=== PATIENT | female | born 1930 | race Hispanic/Latino ===

== ENCOUNTER 2016-09-24 18:34 | Emergency (ER) | payer OTHER ==
[2016-09-24 18:45] VITALS: BMI 27.4
[2016-09-24 19:48] VITALS: RESP 18; TEMP 98; O2SAT 98
[2016-09-24] MEDS ORDERED: TDAP Vaccine 0.5 mL Syr IM ONE (20:10)
--- NOTE | 2016-09-24 20:27 | ED PDOC ---
Arrival/HPI - General Chief Complaint: Trauma Time Seen by Provider: 09/24/16 19:22 Historian: Patient - History of Present Illness Narrative History of Present Illness (Text): 09/24/16 20:27 Patient is an 86 year old female whose past medical history includes diabetes mellitus, hypertension, peripheral neuropathy, who presents to the emergency department for evaluation of injury to right wrist/forearm. Patient accidentally tripped while going to bathroom. No loss of consciousness or head injury. Denies any complaints other than slight discomfort of the right wrist. Denies headache, chest pain, shortness of breath, or back pain. Patient is able to move all four extremities without difficulty. Patient with noted hematoma to affected area by family. 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) - HEENT Hx HEENT Disorder: Yes Hx Blind: No Hx Cataracts: Yes (RIGHT EYE) Hx Deafness: Yes (hard oF hearing RIGHT) Hx Difficulty Chewing: No Hx Epistaxis: No Hx Glaucoma: No Hx Macular Degeneration: No - Renal Hx Renal Disorder: No Hx Renal Failure: No - Endocrine/Metabolic Hx Diabetes Mellitus Type 2: Yes - Hematological/Oncological Hx Blood Disorders: No Hx AIDS: No Hx Anemia: No Hx Cancer: No Hx Chemotherapy: No Hx Cirrhosis: No Hx Hemophilia: No Hx Hepatitis A: No Hx Hepatitis B: No Hx Hepatitis C: No Hx Metastasis: No Hx Shingles: No Hx Sickle Cell Disease: No Hx Unexplained Bleeding: No - Integumentary Hx Dermatological Disorder: Yes (LARGE SKIN ABRASION FROM FALL BACK SIDE. FALL.) Hx Basal Cell Carcinoma: No Hx Eczema: No Hx Melanoma: No Hx Psoriasis: No Hx Squamous Cell Carcinoma: No - Musculoskeletal/Rheumatological Hx Arthritis: Yes - Gastrointestinal Hx Gastrointestinal Disorders: Yes Hx Colostomy: No Hx Crohn's Disease: No Hx Diverticulitis: No Hx Gastroesophageal Reflux: No Hx Gastrointestinal Ulcer: No Hx Ileostomy: No Hx Liver Failure: No Hx Pancreatitis: Yes HX Swallowing Problems: No - Genitourinary/Gynecological Hx Genitourinary Disorders: Yes Hx Hematuria: No Hx Incontinence: Yes Hx Prostate Problems: No Hx Sexually Transmitted Diseases: No Hx Urinary Tract Infection: Yes - Psychiatric Hx Psychophysiologic Disorder: Yes Hx Anxiety: Yes Hx Bipolar Disorder: No Hx Depression: Yes Hx Emotional Abuse: No Hx Hallucinations: No Hx Panic Disorder: No Hx Post Traumatic Stress Disorder: No Hx Psychosis: No Hx Physical Abuse: No Hx Schizophrenia: No Hx Sexual Abuse: No Hx Substance Use: No - Surgical History Hx Amputation: No Hx Appendectomy: Yes Hx Cardiac Catheterization: No Hx Cholecystectomy: Yes Hx Coronary Stent: No Hx Gastric Bypass Surgery: No Hx Hysterectomy: No Hx Joint Replacement: No Hx Kidney Transplant: No Hx Liver Transplant: No Hx Mastectomy: No Hx Musculoskeletal Surgery: No Hx Open Heart Surgery: No Hx Orthopedic Surgery: No Hx Splenectomy: No Hx Valve Replacement: No - Anesthesia Hx Anesthesia: Yes Hx Anesthesia Reactions: No Hx Malignant Hyperthermia: No - Suicidal Assessment Feels Threatened In Home Enviroment: No Family/Social History - Physician Review Nursing Documentation Reviewed: Yes Family/Social History: Unknown Family HX Smoking Status: Never Smoked Hx Alcohol Use: No Hx Substance Use: No Hx Substance Use Treatment: No Allergies/Home Meds Allergies/Adverse Reactions: Allergies No Known Allergies Allergy (Verified 09/24/16 18:45) Home Medications: Home Meds Medication Instructions Recorded Confirmed ALPRAZolam [Xanax] 0.25 mg PO BID 10/26/14 09/24/16 Clopidogrel [Plavix] 75 mg PO DAILY 10/26/14 09/24/16 Docusate [Colace] 100 mg PO DAILY 10/26/14 09/24/16 Escitalopram [Lexapro] 10 mg PO DAILY 10/26/14 09/24/16 Folic Acid 1 mg PO DAILY 10/26/14 09/24/16 Gabapentin [Neurontin] 300 mg PO BID 10/26/14 09/24/16 Glipizide [Glucotrol] 5 mg PO BID 10/26/14 09/24/16 Magnesium Oxide [Magox 400] 1 tab PO DAILY 10/26/14 09/24/16 Simvastatin 20 mg PO QPM 10/26/14 09/24/16 Sitagliptin Phosphate [Januvia] 100 mg PO DAILY 10/26/14 09/24/16 Isosorbide Mononitrate [Imdur] 60 mg PO DAILY 02/02/16 09/24/16 Lactulose [Generlac] 20 ml PO DAILY PRN 02/02/16 09/24/16 Torsemide 20 mg PO DAILY 02/02/16 09/24/16 fentaNYL 75 mcg/hr [Duragesic 75 mcg TD Q72 02/02/16 09/24/16 Patch 75 mcg/hr] Review of Systems - Physician Review All systems were reviewed & negative as marked: Yes - Review of Systems Respiratory: absent: SOB Cardiovascular: absent: Chest Pain Musculoskeletal: Other (Right wrist discomfort). absent: Back Pain Neurological: absent: Headache Physical Exam Vital Signs Reviewed: Yes Vital Signs Temp Pulse Resp BP Pulse Ox 09/24/16 21:00 68 18 138/79 98 09/24/16 19:48 98 F 69 18 142/81 98 Temperature: Afebrile Blood Pressure: Normal Pulse: Regular Respiratory Rate: Normal Appearance: Positive for: Well-Appearing, Non-Toxic, Comfortable Pain Distress: Mild Mental Status: Positive for: Alert and Oriented X 3 - Systems Exam Head: Present: Atraumatic, Normocephalic Pupils: Present: PERRL Extroacular Muscles: Present: EOMI Conjunctiva: Present: Normal Ears: Present: Normal, NORMAL TM Mouth: Present: Moist Mucous Membranes Neck: Present: Normal Range of Motion, Other (Supple) Respiratory/Chest: Present: Clear to Auscultation, Good Air Exchange. No: Respiratory Distress, Accessory Muscle Use Cardiovascular: Present: Regular Rate and Rhythm, Normal S1, S2. No: Murmurs Abdomen: Present: Normal Bowel Sounds. No: Tenderness, Distention, Peritoneal Signs Back: Present: Normal Inspection Upper Extremity: Present: Normal ROM, NORMAL PULSES, Other (Large superficial skin hematoma, swelling to dorsal surface of right distal forearm/wrist region. Full range of motion of the wrist. Small skin tear to dorsum of right forearm. Neurovascularly intact. ). No: Cyanosis, Edema Lower Extremity: Present: Normal Inspection, Normal ROM. No: Edema Neurological: Present: GCS=15, CN II-XII Intact, Speech Normal, Motor Func Grossly Intact, Normal Sensory Function, Normal Cerebellar Funct, Norm Deep Tendon Reflexes Skin: Present: Warm, Dry, Normal Color. No: Rashes Psychiatric: Present: Alert, Oriented x 3, Normal Insight, Normal Concentration Medical Decision Making ED Course and Treatment: Impression: Patient is an 86 year old female whose past medical history includes diabetes mellitus, hypertension, peripheral neuropathy, who presents to the emergency department for evaluation of injury to right wrist/forearm. Differential Diagnosis include but are not limited to: Fracture vs sprain Plan: -- XR right wrist, forearm -- Tdap -- Reassess and disposition Prior Visits: Notes and results from previous visits were reviewed. Patient last seen in ED on 02/02/16 for weakness and fall, and admitted for weakness. Progress Notes: 09/24/16 21:25 Reviewed radiology, XR Right Forearm shows no evidence of acute fracture. XR Right Wrist shows no evidence of acute fracture. - RAD Interpretation Narrative RAD Interpretations (Text): XR Right Forearm shows no evidence of acute fracture. XR Right Wrist shows no evidence of acute fracture. Radiology Orders: 09/24/16 20:10 WRIST, RIGHT 3 VIEWS [RAD] Stat 09/24/16 20:14 FOREARM RIGHT [RAD] Stat Care Technician: ED Physician - Medication Orders Current Medication Orders: Discontinued Medications Tetanus/Reduced Diphtheria/Acell Pertussis (Boostrix Vaccine Inj) 0.5 ml IM .ONCE ONE Stop: 09/24/16 20:11 Last Admin: 09/24/16 20:33 Dose: 0.5 ml - Scribe Statement The provider has reviewed the documentation as recorded by the Evangelina Cervantes Provider Scribe Attestation: All medical record entries made by the Evangelina were at my direction and personally dictated by me. I have reviewed the chart and agree that the record accurately reflects my personal performance of the history, physical exam, medical decision making, and the department course for this patient. I have also personally directed, reviewed, and agree with the discharge instructions and disposition. Disposition/Present on Arrival - Present on Arrival Any Indicators Present on Arrival: No History of DVT/PE: No History of Uncontrolled Diabetes: No Urinary Catheter: No History of Decub. Ulcer: No History Surgical Site Infection Following: None - Disposition Have Diagnosis and Disposition been Completed?: Yes Diagnosis: Forearm contusion, Hematoma of skin, Skin tear Disposition: HOME/ ROUTINE Disposition Time: 21:32 Patient Plan: Discharge Patient Problems: Current Active Problems Problem Status Onset Forearm contusion Acute Hematoma of skin Acute Skin tear Acute Condition: GOOD Discharge Instructions (ExitCare): Contusion in Adults (ED), Skin Tear (ED) Additional Instructions: Keep area clean and dry/apply bacitracin,clean dressing daily/follow up with your doctor this week Prescriptions: Bacitracin Ointment [Bacitracin] 30 gm TOP DAILY #30 tube
[2016-09-24 21:34] VITALS: BP 138/79; PULSE 68
--- NOTE | 2016-09-25 08:52 | RAD ---
PROCEDURE: Radiographs of the Right Forearm HISTORY: injury COMPARISON: None available. TECHNIQUE: Frontal and lateral views obtained. FINDINGS: BONES: No definite fracture. However please note that evaluation is limited due to severe osteopenia. JOINT SPACES: Extensive degenerative changes of the joint spaces. OTHER FINDINGS: None. IMPRESSION: No definite fracture however, please note that evaluation is limited due to severe osteopenia. Extensive degenerative changes involving the joint spaces.
--- NOTE | 2016-09-25 08:57 | RAD ---
PROCEDURE: Right Wrist Radiographs. HISTORY: fall /injury COMPARISON: None. FINDINGS: BONES: No definite fracture or dislocation. JOINTS: Degenerative changes. SOFT TISSUES: No significant soft tissue swelling. OTHER FINDINGS: None. IMPRESSION: No definite fracture or dislocation. Evaluation somewhat limited due to severe osteopenia.
== END 2016-09-24 23:45 | disposition home or self-care (01) ==
LOC: ED 18:34
DX: S50.11XA Contusion of right forearm, initial encounter (principal); W01.0XXA Fall on same level from slipping, tripping and stumbling without subsequent striking against object, initial encounter; Y92.009 Unspecified place in unspecified non-institutional (private) residence as the place of occurrence of the external cause; I10 Essential (primary) hypertension; E11.42 Type 2 diabetes mellitus with diabetic polyneuropathy; Z23 Encounter for immunization

== ENCOUNTER 2017-02-15 11:17 | Inpatient (IN) | payer MEDICARE, OTHER ==
[2017-02-15 11:20] VITALS: BMI 29.5
--- NOTE | 2017-02-15 12:02 | ED PDOC ---
Arrival/HPI - General Chief Complaint: High Blood Sugar Time Seen by Provider: 02/15/17 11:55 Historian: Patient, Family - History of Present Illness Narrative History of Present Illness (Text): 02/15/17 11:55 A 87 year old female, whose past medical history includes diabetes, hyperlipidemia and CHF on Aspirin and Plavix, brought into the emergency department by family complaining of high blood sugar. Daughter reports patients blood sugar was 262 this morning, she states it usually runs in the 140's. She also reports increased lethargy and difficulty breathing. Daughter denies any new medications and states patient is compliant with all her meds. On evaluation , patient complains of shortness of breath and pain to her left lower extremity. Patient denies any fever, chills, nausea, vomiting, abdominal pain, appetite changes, chest pain, cough or any other complaints. PMD: Dr. 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) - HEENT Hx HEENT Disorder: Yes Hx Blind: No Hx Cataracts: Yes (RIGHT EYE) Hx Deafness: Yes (hard oF hearing RIGHT) Hx Difficulty Chewing: No Hx Epistaxis: No Hx Glaucoma: No Hx Macular Degeneration: No - Renal Hx Renal Disorder: No Hx Renal Failure: No - Endocrine/Metabolic Hx Diabetes Mellitus Type 2: Yes - Hematological/Oncological Hx Blood Disorders: No - Integumentary Hx Dermatological Disorder: Yes - Musculoskeletal/Rheumatological Hx Arthritis: Yes - Gastrointestinal Hx Gastrointestinal Disorders: Yes Hx Pancreatitis: Yes - Genitourinary/Gynecological Hx Genitourinary Disorders: Yes Hx Incontinence: Yes Hx Urinary Tract Infection: Yes - Psychiatric Hx Psychophysiologic Disorder: Yes Hx Anxiety: Yes Hx Depression: Yes Hx Substance Use: No - Surgical History Hx Appendectomy: Yes Hx Cholecystectomy: Yes - Anesthesia Hx Anesthesia: Yes Hx Anesthesia Reactions: No Hx Malignant Hyperthermia: No - Suicidal Assessment Feels Threatened In Home Enviroment: No Family/Social History - Physician Review Nursing Documentation Reviewed: Yes Family/Social History: No Known Family HX Smoking Status: Never Smoked Hx Alcohol Use: No Hx Substance Use: No Hx Substance Use Treatment: No Allergies/Home Meds Allergies/Adverse Reactions: Allergies No Known Allergies Allergy (Verified 09/24/16 18:45) Home Medications: Home Meds Medication Instructions Recorded Confirmed ALPRAZolam [Xanax] 0.25 mg PO DAILY 10/26/14 02/15/17 Clopidogrel [Plavix] 75 mg PO DAILY 10/26/14 02/15/17 Docusate [Colace] 100 mg PO DAILY 10/26/14 02/15/17 Escitalopram [Lexapro] 10 mg PO DAILY 10/26/14 02/15/17 Folic Acid 1 mg PO DAILY 10/26/14 02/15/17 Gabapentin [Neurontin] 300 mg PO BID 10/26/14 02/15/17 Glipizide [Glucotrol] 5 mg PO BID 10/26/14 02/15/17 Magnesium Oxide [Magox 400] 400 mg PO DAILY 10/26/14 02/15/17 Simvastatin 20 mg PO QPM 10/26/14 02/15/17 Sitagliptin Phosphate [Januvia] 100 mg PO DAILY 10/26/14 02/15/17 Isosorbide Mononitrate [Imdur] 60 mg PO DAILY 02/02/16 02/15/17 Lactulose [Generlac] 20 ml PO DAILY PRN 02/02/16 02/15/17 Torsemide 10 mg PO DAILY 02/02/16 02/15/17 fentaNYL 75 mcg/hr [Duragesic 75 mcg TD Q72 02/02/16 02/15/17 Patch 75 mcg/hr] Review of Systems - Physician Review All systems were reviewed & negative as marked: Yes - Review of Systems Constitutional: Other (lethargy). absent: Fevers, Night Sweats Respiratory: SOB. absent: Cough Cardiovascular: absent: Chest Pain Gastrointestinal: absent: Abdominal Pain, Nausea, Vomiting, Appetite Changes Musculoskeletal: Other (Left lower extremity pain) Physical Exam Vital Signs Reviewed: Yes Vital Signs Temp Pulse Resp BP Pulse Ox 02/15/17 14:33 67 18 105/42 L 97 02/15/17 13:45 68 15 112/55 L 94 L 02/15/17 11:18 99 F 67 18 118/60 94 L Temperature: Afebrile Blood Pressure: Normal Pulse: Regular Respiratory Rate: Normal Appearance: Positive for: Well-Appearing, Non-Toxic, Comfortable Pain Distress: None Mental Status: Positive for: Alert and Oriented X 3 Finger Stick Blood Glucose: 225 - Systems Exam Head: Present: Atraumatic, Normocephalic Pupils: Present: PERRL Extroacular Muscles: Present: EOMI Conjunctiva: Present: Normal Mouth: Present: Moist Mucous Membranes Neck: Present: Normal Range of Motion Respiratory/Chest: No: Good Air Exchange (shallowed breathing), Respiratory Distress, Accessory Muscle Use Cardiovascular: Present: Murmurs (Left lower sternal border systolic murmur), Normal S1, S2, Irregular Rhythm Abdomen: Present: Normal Bowel Sounds. No: Tenderness, Distention, Peritoneal Signs Back: Present: Normal Inspection Upper Extremity: Present: Normal Inspection, NORMAL PULSES. No: Cyanosis, Edema Lower Extremity: Present: Edema (Trace edema bilaterally), NORMAL PULSES. No: CALF TENDERNESS Neurological: Present: GCS=15, CN II-XII Intact, Speech Normal Skin: Present: Warm, Dry, Normal Color. No: Rashes Psychiatric: Present: Alert, Oriented x 3, Normal Insight, Normal Concentration Medical Decision Making ED Course and Treatment: 02/15/17 11:55 Impression: A 87 year old female brought in for high blood sugar. Patient complains of shortness of breath and LLE pain. Differential Diagnosis included but are not limited to: CHF vs. PNA vs. Worsening renal function vs. PE vs. Non-STEMI vs. Worsening hyperglycemic control Plan: -- Duplex lower extrmity ultrasound -- Chest xray -- EKG -- Labs -- Blood and Urine culture -- Urinalysis -- Reassess and disposition Prior Visits: Notes and results from previous visits were reviewed. Patient had an echocardiogram done on 10/28/14. Progress Notes: 02/15/17 13:17 87-year-old female presenting with shortness of breath and lethargy. She is long history of congestive heart failure is noted bilateral airspace disease consistent with CHF on her chest x-ray she is mildly hypoxic on room air she also has diffuse T-wave inversions on her EKG I have no old ones to compare. Troponin is negative she does have a leukocytosis and low-grade fever some mild loops in her urine we'll treat her for a UTI which will cover any incidental pneumonia as well which could be underlying her CHF. We'll admit her for congestive heart failure of note her d-dimer was elevated as we cannot get a CT of the chest at this time I believe CHF is more likely than pulmonary embolism will defer to the admitting team as to whether to anticoagulate Report Date : 02/15/2017 13:26:05 Procedure: Chest xray Dictator : Gilbert Day MD IMPRESSION: Cardiomegaly with vascular congestion and patchy infiltrates most consistent with CHF vs pneumonia 02/15/17 13:34 chest x-ray may represent fluid overload. She had one low blood pressure reading of 94/47 fluids were initiated but then held as her second blood pressure improved to 112/55, we will hold fluids unless BP drops or Lactic acid is elevated. noted d-dimer is elevated at this point we will defer anticoagulation as this is more likely CHF and pneumonia. Dr. Dudley is aware and will follow-up on pulmonary embolus workup. Report Date : 02/15/2017 14:16:35 PROCEDURE: Left lower extremity venous US Dictator : Joel Terrazas MD IMPRESSION: No sonographic evidence for deep venous thrombosis in the visualized segments of the left lower extremity. - Lab Interpretations Lab Results: 02/15/17 12:02 02/15/17 12:02 Lab Results 02/15/17 12:02: Sodium 139, Potassium 4.5, Chloride 101, Carbon Dioxide 26, Anion Gap 17, BUN 41 H, Creatinine 1.9 H, Est GFR ( Amer) 30, Est GFR ( Non-Af Amer) 25, Random Glucose 200 H, Calcium 9.2, Magnesium 2.2, Total Bilirubin 0.7, AST 44 H, ALT 26, Alkaline Phosphatase 127 H, Lactate Dehydrogenase 561, Total Creatine Kinase 144, Troponin I 0.06 D, NT-Pro-B Natriuret Pep 2000 H, Total Protein 7.7, Albumin 4.0, Globulin 3.8, Albumin/ Globulin Ratio 1.1 02/15/17 12:02: Urine Color Yellow, Urine Appearance Clear, Urine pH 6.0, Ur Specific [place] 1.025, Urine Protein 30 H, Urine Glucose (UA) Negative, Urine Ketones Trace H, Urine Blood Trace-intact H, Urine Nitrate Negative, Urine Bilirubin Negative, Urine Urobilinogen 1.0 H, Ur Leukocyte Esterase Small H, Urine RBC 0 - 2, Urine WBC 5 - 10, Ur Epithelial Cells 0 - 2, Urine Bacteria Mod 02/15/17 12:02: PT 11.4, INR 1.06, APTT 25.8, D-Dimer, Quantitative 2.75 H 02/15/17 12:02: WBC 16.0 H D, RBC 3.78, Hgb 11.9 L, Hct 36.5, MCV 96.6, MCH 31.5 , MCHC 32.6, RDW 14.6 H, Plt Count 202, MPV 10.7, Gran % 81.5 H, Lymph % (Auto) 12.8 L, [place] % (Auto) 5.2, Eos % (Auto) 0.4 L, Baso % (Auto) 0.1, Gran # 13.02 H , Lymph # 2.0, [place] # 0.8 H, Eos # 0.1, Baso # 0.02 I have reviewed the lab results: Yes - RAD Interpretation Radiology Orders: 02/15/17 11:56 CHEST TWO VIEWS (PA/LAT) [RAD] Stat DUPLEX LOWER EXTRM VEIN LEFT [US] Stat - Medication Orders Current Medication Orders: Acetaminophen (Tylenol 325mg Tab) 650 mg PO Q4H PRN PRN Reason: Pain, Mild (1-3) Alprazolam (Xanax) 0.25 mg PO DAILY ALIX PRN Reason: Protocol Stop: 02/23/17 10:01 Clopidogrel Bisulfate (Plavix) 75 mg PO DAILY ALIX Escitalopram Oxalate (Lexapro) 10 mg PO DAILY ALIX Gabapentin (Neurontin) 300 mg PO BID ALIX PRN Reason: Protocol Last Admin: 02/15/17 17:52 Dose: 300 mg Behavioural Document 02/15/17 17:52 MM (Rec: 02/15/17 17:52 MM [id number]) Maintenance Maintenance Dose Yes Nonmedicinal Nonmedicinal Interventions Therapeutic Communication Ceftriaxone Sodium (Rocephin 1 Gram Ivpb) 1 gm in 100 mls @ 100 mls/hr IVPB DAILY ALIX PRN Reason: Protocol Magnesium Oxide (Mag-Ox) 400 mg PO DAILY ALIX Discontinued Medications Ceftriaxone Sodium (Rocephin 1 Gram Ivpb) 1 gm in 100 mls @ 200 mls/hr IVPB STAT STA PRN Reason: Protocol Stop: 02/15/17 13:50 Last Admin: 02/15/17 13:43 Dose: 200 mls/hr eMAR Start Stop Document 02/15/17 13:43 SRE (Rec: 02/15/17 13:43 SRE [id number]) Intravenous Solution Start Date 02/15/17 Start Time 13:43 End Date 02/15/17 End time 14:45 Total Infusion Time 62 Sodium Chloride (Sodium Chloride 0.9%) 1,000 mls @ 150 mls/hr IV .[id number] STA Stop: 02/15/17 20:08 Last Admin: 02/15/17 13:42 Dose: 150 mls/hr eMAR Start Stop Document 02/15/17 13:42 SRE (Rec: 02/15/17 13:43 SRE [id number]) Intravenous Solution Start Date 02/15/17 Start Time 13:42 End Date 02/15/17 End time 21:00 Total Infusion Time 438 Azithromycin (Zithromax 500mg In Ns) 500 mg in 250 mls @ 167 mls/hr IVPB STAT STA PRN Reason: Protocol Stop: 02/15/17 15:06 Last Admin: 02/15/17 14:30 Dose: 167 mls/hr eMAR Start Stop Document 02/15/17 14:30 SRE (Rec: 02/15/17 14:30 SRE [id number]) Intravenous Solution Start Date 02/15/17 Start Time 14:15 End Date 02/15/17 End time 15:45 Total Infusion Time 90 - Scribe Statement The provider has reviewed the documentation as recorded by the Evangelian Jacobson Provider Scribe Attestation: All medical record entries made by the Scribe were at my direction and personally dictated by me. I have reviewed the chart and agree that the record accurately reflects my personal performance of the history, physical exam, medical decision making, and the department course for this patient. I have also personally directed, reviewed, and agree with the discharge instructions and disposition. Disposition/Present on Arrival - Present on Arrival Any Indicators Present on Arrival: Yes History of DVT/PE: No History of Uncontrolled Diabetes: Yes Urinary Catheter: No History of Decub. Ulcer: No History Surgical Site Infection Following: None - Disposition Have Diagnosis and Disposition been Completed?: Yes Diagnosis: Pneumonia, CHF (congestive heart failure) Disposition: HOSPITALIZED Disposition Time: 13:30 Patient Plan: Admission, Telemetry Patient Problems: Current Active Problems Problem Status Onset CHF (congestive heart failure) Acute Pneumonia Acute Condition: IMPROVED
[2017-02-15 12:09] LABS: URINE BILIRUBIN NEGATIVE (NEGATIVE); URINE BLOOD TRACE-INTACT (NEGATIVE); URINE GLUCOSE (UA) NEGATIVE (NEGATIVE); URINE KETONE TRACE mg/dL (NEGATIVE); URINE LEUKOCYTE ESTERASE SMALL Leu/uL (NEGATIVE); URINE PROTEIN 30 mg/dL (<30 mg/dL)
[2017-02-15 12:10] LABS: BASO # 0.02 K/mm3 (0.0-2.0); BASO % 0.1 % (0.0-3.0); EOS # 0.1 (0.0-0.7); EOS % 0.4 % (1.5-5.0); GRAN # 13.02 (1.4-6.5); GRAN % 81.5 % (50.0-68.0); HEMATOCRIT 36.5 % (36.0-48.0); LYMPH % 12.8 % (22.0-35.0); MEAN CELL VOLUME 96.6 fl (80.0-105.0); MEAN CORPUSCULAR HEMOGLOBIN 31.5 pg (25.0-35.0); MEAN CORPUSCULAR HGB CONC 32.6 g/dl (31.0-37.0); MEAN PLATELET VOLUME 10.7 fl (7.0-11.0); MONO # 0.8 (0.1-0.6); MONO % 5.2 % (1.0-6.0); RED CELL DISTRIBUTION WIDTH 14.6 % (11.5-14.5)
[2017-02-15 12:11] LABS: URINE APPEARANCE CLEAR (CLEAR); URINE COLOR YELLOW (YELLOW)
[2017-02-15 12:19] LABS: ALB/GLOB RATIO 1.1 (1.1-1.8); BILIRUBIN,TOTAL 0.7 mg/dL (0.2-1.3); CALCIUM 9.2 mg/dL (8.4-10.5); MAGNESIUM 2.2 mg/dL (1.7-2.2); POTASSIUM 4.5 mmol/L (3.6-5.0); TOTAL PROTEIN 7.7 g/dL (5.8-8.3)
[2017-02-15 12:20] LABS: INR 1.06 (0.93-1.08); PARTIAL THROMBOPLASTIN TIME 25.8 Seconds (23.7-30.8)
[2017-02-15 12:21] LABS: D DIMER 2.75 mg/L FEU (0-0.50); URINE BACTERIA MOD (NEG); URINE EPITHELIAL CELLS 0 - 2 /hpf (0-5); URINE RBC 0 - 2 /hpf (0-2)
[2017-02-15 12:30] LABS: TROPONIN I 0.06 ng/mL
[2017-02-15] MEDS ORDERED: cefTRIAXone 1 gm 1 GM/100 ML BAG IVPB STA (13:21)
--- NOTE | 2017-02-15 13:27 | RAD ---
HISTORY: SOB COMPARISON: 02/02/2016 TECHNIQUE: Chest PA and lateral FINDINGS: LUNGS: There is vascular congestion with patchy infiltrates PLEURA: No significant pleural effusion identified. No pneumothorax apparent. CARDIOVASCULAR: Moderate cardiomegaly OSSEOUS STRUCTURES: No significant abnormalities. VISUALIZED UPPER ABDOMEN: Normal. OTHER FINDINGS: None. IMPRESSION: Cardiomegaly with vascular congestion and patchy infiltrates most consistent with CHF
[2017-02-15] MEDS ORDERED: Sodium Chloride 0.9% 1,000 ML IV STA (13:29)
[2017-02-15] MEDS ORDERED: Azithromycin 500MG/NS 250ml 500 MG/250 ML BAG IVPB STA (13:37)
[2017-02-15 13:45] LABS: VENOUS BLOOD GAS BASE EXCESS 2.8 mmol/L (0.0-2.0); VENOUS BLOOD PH 7.32 (7.32-7.43)
--- NOTE | 2017-02-15 14:18 | US ---
PROCEDURE: Left lower extremity venous US HISTORY: Leg pain and swelling. Evaluate for DVT. PHYSICIAN(S): Joel Devi MD. TECHNIQUE: Duplex sonography and color-flow Doppler with graded compression were used to evaluate the deep venous system of the left lower extremity. The exam is somewhat limited by edema. FINDINGS: The visualized deep venous system of the left lower extremity is sonographically normal and compressible. Normal wave forms and augmentation are seen. There is no sonographic evidence for deep venous thrombosis in the visualized segments of the left lower extremity. IMPRESSION: 1. No sonographic evidence for deep venous thrombosis in the visualized segments of the left lower extremity.
--- NOTE | 2017-02-15 23:15 | HP ---
HISTORY OF PRESENT ILLNESS: An 87-year-old female with a history of lower leg neuropathy for many years, mild dementia, and recurrent episodes or urosepsis. The patient had change in mental status at home with low-grade fever and some dysuria, came to the emergency room and was found to have an elevated white count of 16,000 with left shift. Elevated BUN and creatinine of 41 and 1.9. Blood sugar of 200. Pyuria and bacteruria. The patient was evaluated in the ER for change in mental status. Also has a mild positive D-dimer. The patient was hydrated with fluids and started on IV antibiotics and admitted to the hospital with possible urosepsis and change in mental status. PHYSICAL EXAMINATION: VITAL SIGNS: Temperature of 99 and blood pressure of 118/60. GENERAL: Shows a well-developed, well-nourished, white female. Mild obesity. HEART: Regular sinus rhythm. CHEST: Clear to auscultation and percussion. EXTREMITIES: Without cyanosis, clubbing, or edema. NEUROLOGICAL: Grossly intact. Suffer decreased sensation in the lower extremities. Babinski are downgoing. The patient is oriented to person and place without time. PLAN: Is to hydrate, continue IV antibiotics, septic workup, and reassess her BUN and creatinine and her elevated leukocytosis. Emmanuel Dudley MD
--- NOTE | 2017-02-16 00:57 | CARD ---
APPROVED REPORT EKG Measurement Heart [id number] <Conclusion> Sinus rhythm with 1st degree AV block with premature atrial complexes T wave abnormality, consider anterolateral ischemia Prolonged QT Abnormal ECG
--- NOTE | 2017-02-16 08:51 | PQF UROSEP ---
This form is a permanent part of the medical record Clarification of your documentation is requested to better reflect the severity of illness and intensity of treatment of your patient. Indicators present The patient had change in mental status at home with low- grade fever and some dysuria, came to the emergency room and was found to have an elevated white count of 16,000 with left shift. Elevated BUN and creatinine of 41 and 1.9. Blood sugar of 200. Pyuria and bacteruria. The patient was evaluated in the ER for change in mental status. Also has a mild positive D- dimer. The patient was hydrated with fluids and started on IV antibiotics and admitted to the hospital with possible urosepsis and change in mental status. 1. Please clarify the specific condition indicated by the term 'urosepsis'. Per [facility], urosepsis is considered an imprecise term. [x] Documentation of UROSEPSIS [x] Fever or hypothermia [x] WBC count > 12,000/mm3 or <4000/mm3 or 10% immature neutrophils [x] Hypotension [] Tachycardia [x] Altered mental status/confusion [] + Urine/Blood Cultures [] Other: [] Location in the medical record that reflects the above clinical findings: [x] H& P Treatment Provided: [x] IV Rocephin PHYSICIAN'S RESPONSE Based on your medical judgment of the clinical indicators outlined above, are you treating this patient for a known or suspected: [] Sepsis from a Urinary Source [x] Localized Urinary Tract Infection - pyuria or bacteria in the urine [] Other, please indicate [] [] If unable to determine, please check the box, sign and date. Present On Admission (POA) Indicator: [x] Present at the time of admission [] Not present at the time of admission [] Clinically Undetermined In responding to this query, please exercise your independent professional judgment. The fact that a question is asked does not imply that any particular answer is desired or expected. Thank you for your clarification on this documentation. If you have any questions please call:[ ] * Thank you, [ ] mainframe programmer KATY
[2017-02-16 09:33] LABS: BASO # 0.02 K/mm3 (0.0-2.0); BASO % 0.2 % (0.0-3.0); EOS # 0.1 (0.0-0.7); EOS % 1.2 % (1.5-5.0); GRAN # 10.01 (1.4-6.5); GRAN % 82.1 % (50.0-68.0); HEMATOCRIT 35.4 % (36.0-48.0); LYMPH # 1.4 (1.2-3.4); LYMPH % 11.7 % (22.0-35.0); MEAN CELL VOLUME 96.2 fl (80.0-105.0); MEAN CORPUSCULAR HEMOGLOBIN 31.5 pg (25.0-35.0); MEAN CORPUSCULAR HGB CONC 32.8 g/dl (31.0-37.0); MONO # 0.6 (0.1-0.6); MONO % 4.8 % (1.0-6.0); RED CELL DISTRIBUTION WIDTH 14.4 % (11.5-14.5); WHITE BLOOD COUNT 12.2 10^3/ul (4.5-11.0)
[2017-02-16] MEDS ORDERED: Magnesium Oxide 400 mg Tab UD PO SCH (10:00)
[2017-02-16] MEDS ORDERED: cefTRIAXone 1 gm 1 GM/100 ML BAG IVPB SCH (10:00)
[2017-02-16] MEDS: Insulin Reg-LOW-Coverage SC SCH ×3 (12:24→21:36)
--- NOTE | 2017-02-16 19:45 | PN ---
SUBJECTIVE: An 87-year-old white female admitted to the hospital with change in mental status and urinary tract infection. The patient is afebrile today. Vital signs are stable. She also has an elevated BUN and creatinine of 41 and 1.9. White count of 12,200. Elevated temperature of 97.8, blood pressure of 133/65. The patient is treated with IV Rocephin. The patient is responding well. She had no further dysuria or change in mental status, but we will attempt to start physical therapy and occupational therapy to get the patient out of bed, ambulate and continue her course of IV antibiotics. Emmanuel Dudley MD
[2017-02-17] MEDS: Insulin Reg-LOW-Coverage SC SCH ×4 (08:12→21:08)
[2017-02-17] MEDS: cefTRIAXone 1 gm 1 GM/100 ML BAG IVPB SCH (10:36)
[2017-02-17] MEDS: Magnesium Oxide 400 mg Tab UD PO SCH (10:37)
--- NOTE | 2017-02-17 13:06 | PN ---
SUBJECTIVE: An 87-year-old white female admitted to the hospital with change in mental status and urosepsis. The patient is doing well. OBJECTIVE: Vital signs are stable. She is afebrile today. She is more oriented and alert. LABORATORY DATA: She is still having elevated white count of 12,200. Elevated BUN and creatinine of 41 and 1.9. She is starting physical therapy and occupational therapy. She has completed given course of IV antibiotics, and she will be transferred to subacute rehab. Her microbiology is showing E. coli in her urine which is sensitive to all antibiotics. Her blood cultures are negative. Emmanuel Dudley MD
[2017-02-18 06:28] VITALS: O2SAT 95
[2017-02-18] MEDS: Insulin Reg-LOW-Coverage SC SCH ×2 (08:17→11:57)
[2017-02-18] MEDS: Magnesium Oxide 400 mg Tab UD PO SCH (09:08)
[2017-02-18] MEDS: cefTRIAXone 1 gm 1 GM/100 ML BAG IVPB SCH (09:08)
--- NOTE | 2017-02-18 09:48 | PN ---
SUBJECTIVE: An 87-year-old white female status post urosepsis, E. coli with change in mental status. The patient is doing better, markedly improved. PHYSICAL EXAMINATION: VITAL SIGNS: The patient is afebrile. Blood pressure 169/68. LABORATORY DATA: BUN and creatinine is elevated at 41 and 1.9. White count is down to 12.2. PLAN: The patient is being transferred to TCU for continued rehab. Vital signs are stable. The patient is followed in TCU; the patient will be switched from IV to p.o. antibiotics. Emmanuel Dudley MD
[2017-02-18 11:54] VITALS: BP 153/58; PULSE 72; RESP 18; TEMP 98.4
== END 2017-02-18 14:51 | DRG 690 ==
LOC: ED 11:17 → ERH 13:34 → 2RNO 15:41 → UNDODISIN 02-16 13:29
PROVIDERS: ADMIT Internal Medicine; ATTEND Internal Medicine
DX: N39.0 Urinary tract infection, site not specified (principal); F03.90 Unspecified dementia, unspecified severity, without behavioral disturbance, psychotic disturbance, mood disturbance, and anxiety; I11.0 Hypertensive heart disease with heart failure; I50.9 Heart failure, unspecified; E11.41 Type 2 diabetes mellitus with diabetic mononeuropathy; G57.90 Unspecified mononeuropathy of unspecified lower limb; B96.20 Unspecified Escherichia coli [E. coli] as the cause of diseases classified elsewhere; Z79.84 Long term (current) use of oral hypoglycemic drugs

== ENCOUNTER 2017-02-18 14:51 | Inpatient (IN) | payer OTHER ==
[2017-02-18 15:39] VITALS: BMI 20.6
[2017-02-18] MEDS ORDERED: Pneumococcal 23-Valent Vaccine IM ONE (16:56)
[2017-02-18] MEDS: Insulin Reg-LOW-Coverage SC SCH ×2 (17:25→22:00)
[2017-02-19] MEDS: Insulin Reg-LOW-Coverage SC SCH ×4 (07:11→22:00)
[2017-02-19] MEDS: Magnesium Oxide 400 mg Tab UD PO SCH (10:07)
[2017-02-19] MEDS: Amoxicillin-Clav 500-125 mg Tab PO SCH (21:20)
--- NOTE | 2017-02-19 23:55 | PN ---
DATE: 02/19/2017 SUBJECTIVE: The patient has no complaints of any chest pain. No shortness of breath. No headache or dizziness. Initial H&P has been reviewed. PHYSICAL EXAMINATION: VITAL SIGNS: Temperature is 98, pulse is 57, blood pressure 157/66, respirations 15 and O2 saturation 95%. GENERAL: The patient is lying in bed, flat, comfortable. HEENT: No oral lesion. Anicteric sclerae. Moist mucosa. NECK: No JVD, adenopathy, or thyromegaly. CARDIOVASCULAR: S1 and S2, regular. No murmurs, rubs, or gallops. LUNGS: Clear to auscultation bilaterally. No wheeze, rales, or rhonchi. ABDOMEN: Bowel sounds are positive, soft, nontender and nondistended. EXTREMITIES: No cyanosis, clubbing or edema. ASSESSMENT: 1. Urinary tract infection secondary to Escherichia coli. 2. Dyslipidemia. 3. Hypertension. 4. Anxiety. 5. Osteoarthritis. PLAN: The patient is currently comfortable. The patient has had UTI secondary to E. coli. The patient is on fentanyl patch for pain, he is on Lexapro for anxiety. The patient is going to be on Neurontin for neuropathy. The patient is at TCU for continued rehab, Dr. Dudley. I will switch the patient however to p.o. antibiotics for the E. coli infection. The patient is fairly sensitive, I will place the patient on Augmentin, it is sensitive. Johann Hernandez MD
[2017-02-20] MEDS: Insulin Reg-LOW-Coverage SC SCH ×4 (06:56→22:30)
[2017-02-20] MEDS: Magnesium Oxide 400 mg Tab UD PO SCH (11:00)
[2017-02-20] MEDS: Amoxicillin-Clav 500-125 mg Tab PO SCH ×2 (11:00→21:07)
[2017-02-20 16:48] VITALS: RESP 18
[2017-02-21] MEDS: Insulin Reg-LOW-Coverage SC SCH ×2 (06:48→12:37)
[2017-02-21] MEDS: Magnesium Oxide 400 mg Tab UD PO SCH (10:28)
[2017-02-21] MEDS: Amoxicillin-Clav 500-125 mg Tab PO SCH (10:28)
--- NOTE | 2017-02-21 10:33 | DS ---
An 87-year-old white female admitted from [facility] after episode of change in mental status, confusion, urosepsis. The patient was found to have E. coli sensitive to most antibiotics, was switched to p.o. antibiotics. The patient is doing well. Vital signs stable. Completed physical therapy and occupational therapy. The patient will be discharged home in good condition. She is to finish the course of p.o. antibiotics at home. FINAL DISCHARGE DIAGNOSES: Change in mental status, dementia, urinary tract infection, and neuropathy. Emmanuel Dudley MD
[2017-02-21 14:13] VITALS: BP 155/68; PULSE 68; TEMP 98.3; O2SAT 96
== END 2017-02-21 14:44 | disposition home or self-care (01) | DRG 690 ==
LOC: TRCU 14:51
PROVIDERS: ADMIT Internal Medicine; ATTEND Internal Medicine
PROC: F07Z9FZ Gait Training/Functional Ambulation Treatment using Assistive, Adaptive, Supportive or Protective Equipment (ICD-10-PCS; principal; 2017-02-19)
DX: N39.0 Urinary tract infection, site not specified (principal); B96.20 Unspecified Escherichia coli [E. coli] as the cause of diseases classified elsewhere; G62.9 Polyneuropathy, unspecified; F03.90 Unspecified dementia, unspecified severity, without behavioral disturbance, psychotic disturbance, mood disturbance, and anxiety; I10 Essential (primary) hypertension; F41.9 Anxiety disorder, unspecified; E78.5 Hyperlipidemia, unspecified; M19.90 Unspecified osteoarthritis, unspecified site

== ENCOUNTER 2017-06-12 07:24 | Inpatient (IN) | payer MEDICARE, OTHER ==
[2017-06-12 07:48] VITALS: BMI 28.5
--- NOTE | 2017-06-12 08:03 | ED PDOC ---
Arrival/HPI - General Chief Complaint: Weakness/Neurological Deficit Time Seen by Provider: 06/12/17 07:41 Historian: Patient, Family - History of Present Illness Narrative History of Present Illness (Text): you were treated in the ED today for hx of stroke with right sided weakness, heart failure, urinary tract infections with confusion in the past and now brought with elizabeth who states your feeling weaker than normal, dry from lack of drinking fluids adequetely but otherwise without any nausea/vomiting/headache /dizziness/difficulty breathing/chest pain/abdomen pain/numbness/tingling/loss of limb function/pain with urination. 06/12/17 08:00 Time/Duration: Other (2 days) Quality: Other (no pain) Context: Sitting Past Medical History - Provider Review Nursing Documentation Reviewed: Yes - Travel History Have you recently traveled outside [place] w/in the past 3 mons?: No - Past History Past History: Non-Contributing - Infectious Disease Hx of Infectious Diseases: None - Tetanus Immunization Tetanus Immunization: Unknown - Cardiac Hx Cardiac Disorders: Yes Hx Congestive Heart Failure: Yes Hx Hypertension: Yes - Pulmonary Hx Respiratory Disorders: No Hx Chronic Obstructive Pulmonary Disease (COPD): No - Neurological HX Cerebrovascular Accident: Yes (2006) - HEENT Hx HEENT Disorder: Yes Hx Blind: No Hx Cataracts: Yes (RIGHT EYE) Hx Deafness: Yes (hard oF hearing RIGHT) Hx Difficulty Chewing: No Hx Epistaxis: No Hx Glaucoma: No Hx Macular Degeneration: No - Renal Hx Renal Disorder: No Hx Renal Failure: No - Endocrine/Metabolic Hx Diabetes Mellitus Type 2: Yes - Hematological/Oncological Hx Blood Disorders: No - Integumentary Hx Dermatological Disorder: Yes - Musculoskeletal/Rheumatological Hx Falls: Yes (02/02/2016) - Gastrointestinal Hx Gastrointestinal Disorders: Yes - Genitourinary/Gynecological Hx Reproductive Disorders: No - Psychiatric Hx Psychophysiologic Disorder: Yes Hx Anxiety: Yes Hx Depression: Yes Hx Substance Use: No - Surgical History Hx Appendectomy: Yes Hx Cholecystectomy: Yes - Anesthesia Hx Anesthesia: Yes Hx Anesthesia Reactions: No Hx Malignant Hyperthermia: No - Suicidal Assessment Feels Threatened In Home Enviroment: No Family/Social History - Physician Review Nursing Documentation Reviewed: Yes Family/Social History: No Known Family HX Smoking Status: Never Smoked Hx Alcohol Use: No Hx Substance Use: No Hx Substance Use Treatment: No Allergies/Home Meds Allergies/Adverse Reactions: Allergies No Known Allergies Allergy (Verified 06/12/17 07:52) Home Medications: Home Meds Medication Instructions Recorded Confirmed ALPRAZolam [Xanax] 0.25 mg PO DAILY 10/26/14 06/12/17 Clopidogrel [Plavix] 75 mg PO DAILY 10/26/14 06/12/17 Docusate [Colace] 100 mg PO DAILY 10/26/14 06/12/17 Escitalopram [Lexapro] 10 mg PO DAILY 10/26/14 06/12/17 Folic Acid 1 mg PO DAILY 10/26/14 06/12/17 Gabapentin [Neurontin] 300 mg PO BID 10/26/14 06/12/17 Glipizide [Glucotrol] 5 mg PO BID 10/26/14 06/12/17 Magnesium Oxide [Magox 400] 400 mg PO DAILY 10/26/14 06/12/17 Simvastatin 20 mg PO QPM 10/26/14 06/12/17 Sitagliptin Phosphate [Januvia] 100 mg PO DAILY 10/26/14 06/12/17 Isosorbide Mononitrate [Imdur] 60 mg PO DAILY 02/02/16 06/12/17 Lactulose [Generlac] 20 ml PO DAILY PRN 02/02/16 06/12/17 Torsemide 10 mg PO DAILY 02/02/16 06/12/17 fentaNYL 75 mcg/hr [Duragesic 75 mcg TD Q72 02/02/16 06/12/17 Patch 75 mcg/hr] Losartan [Cozaar] 100 mg PO DAILY 06/12/17 06/12/17 Review of Systems - Review of Systems Constitutional: Fatigue Eyes: Normal ENT: Normal Respiratory: Other (congestion) Cardiovascular: Normal Gastrointestinal: Normal Genitourinary Female: Urine Output Changes Musculoskeletal: Normal Skin: Normal Neurological: Normal, Other Endocrine: Normal Hemo/Lymphatic: Normal Psychiatric: Normal Physical Exam Vital Signs Reviewed: Yes Vital Signs Temp Pulse Resp BP Pulse Ox 06/12/17 10:07 72 18 124/72 96 06/12/17 07:44 98.1 F 70 20 114/56 L 94 L 06/12/17 07:38 98.1 F 75 18 114/56 L 92 L Temperature: Afebrile Blood Pressure: Normal Pulse: Regular Respiratory Rate: Normal Appearance: Positive for: Well-Appearing, Non-Toxic, Comfortable Pain Distress: None Mental Status: Positive for: Alert and Oriented X 3, other - Systems Exam Head: Present: Atraumatic, Normocephalic Pupils: Present: PERRL Extroacular Muscles: Present: EOMI Conjunctiva: Present: Normal Ears: Present: Normal Mouth: Present: Moist Mucous Membranes Pharnyx: Present: Normal Nose (External): Present: Atraumatic Nose (Internal): Present: Normal Inspection Neck: Present: Normal Range of Motion Respiratory/Chest: Present: Clear to Auscultation, Good Air Exchange Cardiovascular: Present: Regular Rate and Rhythm Abdomen: No: Tenderness, Distention, Normal Bowel Sounds, Peritoneal Signs, Rebound, Guarding, McBurney's Point Tender, Rovsing's Sign Present, Hernias, Feeding Tubes, Ostomy Tubes, Mass/Organomegaly, Scars, Other Back: Present: Normal Inspection Upper Extremity: Present: Normal Inspection Lower Extremity: Present: Normal Inspection Neurological: Present: GCS=15, CN II-XII Intact, Speech Normal, Other (baseline level of strength as pt with right lower extremity weakness) Skin: Present: Warm, Normal Color Psychiatric: Present: Alert, Oriented x 3, Normal Insight, Normal Concentration Medical Decision Making ED Course and Treatment: you were treated in the ED today for hx of stroke with right sided weakness, heart failure, urinary tract infections with confusion in the past and now brought with elizabeth who states your feeling weaker than normal, dry from lack of drinking fluids adequetely but otherwise without any nausea/vomiting/headache /dizziness/difficulty breathing/chest pain/abdomen pain/numbness/tingling/loss of limb function/pain with urination. You were otherwise breathing easily, pink lips, smiling and taking with your daughter, baseline strength/sensation, alert/ oriented, clear lungs, no abdomen tenderness, no fever temp 98.1, stable heart rate 75, stable breathing rate 18, excellent oxygen level 94% room air, stable blood pressure 114/56, you have blood tests no infection count 15, stable blood level hemoglobin 12/platelets 191, stable chemistry sodium 136, potassium 4.2, bicarbonate 28, chloride 98, bun 36, creatinine 1.5 mildly elevated, glucose 197 , heart blood test____, mild increase heart failure test 1970 with age consideration, urine test____, radiology no acute intracranial abnormality. moderate chronic changes, old lacunar infarction in the left medial basal ganglia, ECG similar to prior, intravenous fluids in the ED with improvement, counselled to drink fluids and thus discharged home with daughter. Influenza: Negative. Lactate: 1.4. difficulty ambulating/weakness. 06/12/17 08:55 CT Head: Creator : Anitra Mejias MD COMPARISON: 02/02/2016. FINDINGS: HEMORRHAGE: No intracranial hemorrhage. BRAIN: There are moderate chronic microangiopathic changes. There is no mass, mass effect or abnormal extra-axial fluid collections. 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 CALVARIUM: The skull base and calvarium are normal. PARANASAL SINUSES: Predominantly clear. MASTOID AIR CELLS: Predominantly clear. OTHER FINDINGS: None. IMPRESSION: No acute intracranial abnormality. Moderate chronic microangiopathic changes and moderate age-related global parenchymal volume loss. 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 06/12/17 09:40 CXR: Creator: Anitra Mejias MD FINDINGS: LINES AND TUBES: None. LUNG AND PLEURA: The lungs are well inflated. There is mild pulmonary venous congestion. No focal consolidation. HEART AND MEDIASTINUM:There is persistent mild cardiomegaly. There is unfolding of the aorta. Atherosclerotic aortic arch calcifications are present. The hilar and mediastinal contours are within normal limits. SKELETAL STRUCTURES: The bony structures are within normal limits for the patient's age. VISUALIZED UPPER ABDOMEN: Normal. OTHER FINDINGS: None. IMPRESSION: No active pulmonary disease. 06/12/17 10:15 06/12/17 10:53 d/w Dr. Muller and will admit for weakness. pt co of right lower leg pain and he will put in duplex us for dvt eval and he will fu. ua neg and cxr without acute sign of pneumonia and thus despite wbc 15 will hold off on abx at this time and he will fu urine cx. admit to med surgery. - Lab Interpretations Lab Results: 06/12/17 08:08 06/12/17 08:08 Lab Results 06/12/17 10:22: Urine Color Yellow, Urine Appearance Cloudy, Urine pH 6.0, Ur Specific [place] 1.020, Urine Protein Trace H, Urine Glucose (UA) Negative, Urine Ketones Negative, Urine Blood Small H, Urine Nitrate Negative, Urine Bilirubin Negative, Urine Urobilinogen 0.2, Ur Leukocyte Esterase Moderate H, Urine RBC Pending, Urine WBC Pending 06/12/17 09:05: pO2 48, VBG pH 7.36, VBG pCO2 52.0, VBG HCO3 29.4 H, VBG Total CO2 31.0 H, VBG O2 Sat (Calc) 87.9 H, VBG Base Excess 2.8 H, VBG Potassium 4.4, Glucose 208 H, Lactate 1.4, FiO2 21.0, Sodium 135.0, Chloride 102.0, Venous Blood Potassium 4.4 06/12/17 08:08: pO2 47, VBG pH 7.33, VBG pCO2 58.0, VBG HCO3 30.6 H, VBG O2 Sat (Calc) 85.9 H, VBG Base Excess 3.2 H 06/12/17 08:08: Influenza Typ A,B (EIA) Negative for flu a/b 06/12/17 08:08: PT 12.3, INR 1.08, APTT 27.1 06/12/17 08:08: Sodium 136, Potassium 4.2, Chloride 98, Carbon Dioxide 28, Anion Gap 14, BUN 36 H, Creatinine 1.5 H, Est GFR ( Amer) 40, Est GFR ( Non-Af Amer) 33, Random Glucose 197 H, Calcium 9.6, Magnesium 2.2, Total Bilirubin 0.6, AST 33, ALT 26, Alkaline Phosphatase 142 H, Lactate Dehydrogenase 457, Total Creatine Kinase 56, Troponin I 0.06, NT-Pro-B Natriuret Pep 1470 H, Total Protein 7.6, Albumin 3.8, Globulin 3.8, Albumin/ Globulin Ratio 1.0 L 06/12/17 08:08: WBC 15.1 H D, RBC 4.00, Hgb 12.8, Hct 38.8, MCV 97.0, MCH 32.0, MCHC 33.0, RDW 13.5, Plt Count 191, MPV 10.4, Gran % 80.8 H, Lymph % (Auto) 13.2 L, Citrus % (Auto) 4.9, Eos % (Auto) 0.8 L, Baso % (Auto) 0.3, Gran # 12.17 H , Lymph # 2.0, Citrus # 0.7 H, Eos # 0.1, Baso # 0.04 I have reviewed the lab results: Yes - RAD Interpretation Radiology Orders: 06/12/17 07:54 CHEST TWO VIEWS (PA/LAT) [RAD] Stat 06/12/17 07:59 HEAD W/O CONTRAST [CT] Stat 06/12/17 10:44 LUNG PERF & VENT SCAN [NM] Routine 06/12/17 10:46 DUPLEX LOWER EXTRM ARTR BILAT [US] Routine [employer]ing [employer] Laborer: Radiologist - EKG Interpretation Interpreted by ED Physician: Yes (SR, flipped t waves v2, v3) Type: 12 lead EKG Comparison: Similar to previous EKG (02/15/17) - Medication Orders Current Medication Orders: Alprazolam (Xanax) 0.25 mg PO DAILY ALIX PRN Reason: Protocol Stop: 06/20/17 10:01 Aspirin (Ecotrin) 81 mg PO 0800 ALIX Atorvastatin Calcium (Lipitor) 10 mg PO HS ALIX Clopidogrel Bisulfate (Plavix) 75 mg PO DAILY ALIX Docusate Sodium (Colace) 100 mg PO DAILY ALIX Escitalopram Oxalate (Lexapro) 10 mg PO DAILY ALIX Fentanyl (Duragesic) 75 patch TD Q72 ALIX Folic Acid (Folic Acid) 1 mg PO DAILY ALIX Sodium Chloride (Sodium Chloride 0.9%) 1,000 mls @ 100 mls/hr IV .Q10H ALIX Last Admin: 06/12/17 09:43 Dose: 100 mls/hr eMAR Start Stop Document 06/12/17 09:43 MS (Rec: 06/12/17 09:44 MS [id number]) Intravenous Solution Start Date 06/12/17 Start Time 09:44 Ceftriaxone Sodium (Rocephin 1 Gram Ivpb) 1 gm in 100 mls @ 100 mls/hr IVPB DAILY ALIX PRN Reason: Protocol Last Admin: 06/12/17 10:59 Dose: 100 mls/hr eMAR Start Stop Document 06/12/17 10:59 EWO (Rec: 06/12/17 11:00 EWO [id number]) Intravenous Solution Start Date 06/12/17 Start Time 11:00 End Date 06/12/17 End time 12:00 Total Infusion Time 60 Isosorbide Mononitrate (Imdur) 60 mg PO DAILY ALIX Lactulose (Generlac) 13.333 gm SD DAILY PRN PRN Reason: Constipation Losartan Potassium (Cozaar) 100 mg PO DAILY ALIX Magnesium Oxide (Mag-Ox) 400 mg PO DAILY ALIX - Scribe Statement The provider has reviewed the documentation as recorded by the Loreneibsabiha Schuster Provider Scribe Attestation: All medical record entries made by the Scribe were at my direction and personally dictated by me. I have reviewed the chart and agree that the record accurately reflects my personal performance of the history, physical exam, medical decision making, and the department course for this patient. I have also personally directed, reviewed, and agree with the discharge instructions and disposition. Disposition/Present on Arrival - Present on Arrival Any Indicators Present on Arrival: No History of DVT/PE: No History of Uncontrolled Diabetes: Yes Urinary Catheter: No History of Decub. Ulcer: No History Surgical Site Infection Following: None - Disposition Have Diagnosis and Disposition been Completed?: Yes Diagnosis: Weakness Disposition: HOSPITALIZED Disposition Time: 11:00 Patient Plan: Admission Condition: STABLE Discharge Instructions (ExitCare): Weakness (ED) Forms: [employer] (Gabonese)
[2017-06-12 08:31] LABS: BASO # 0.04 K/mm3 (0.0-2.0); BASO % 0.3 % (0.0-3.0); EOS # 0.1 (0.0-0.7); EOS % 0.8 % (1.5-5.0); GRAN # 12.17 (1.4-6.5); GRAN % 80.8 % (50.0-68.0); HEMOGLOBIN 12.8 g/dL (12.0-16.0); LYMPH % 13.2 % (22.0-35.0); MEAN PLATELET VOLUME 10.4 fl (7.0-11.0); MONO # 0.7 (0.1-0.6); MONO % 4.9 % (1.0-6.0); RED CELL DISTRIBUTION WIDTH 13.5 % (11.5-14.5); WHITE BLOOD COUNT 15.1 10^3/ul (4.5-11.0)
[2017-06-12 08:33] LABS: VENOUS BLOOD GAS BASE EXCESS 3.2 mmol/L (0.0-2.0); VENOUS BLOOD GAS PO2 47 mm/Hg (30-55); VENOUS BLOOD PH 7.33 (7.32-7.43)
[2017-06-12 08:57] LABS: ALBUMIN 3.8 g/dL (3.0-4.8); CALCIUM 9.6 mg/dL (8.4-10.5); MAGNESIUM 2.2 mg/dL (1.7-2.2)
--- NOTE | 2017-06-12 08:57 | CT ---
PROCEDURE: CT HEAD WITHOUT CONTRAST. HISTORY: hx of cva, weakness COMPARISON: 02/02/2016. TECHNIQUE: Axial computed tomography images were obtained through the head/brain without intravenous contrast. Radiation dose: Total exam DLP = 833.34 mGy-cm. This CT exam was performed using one or more of the following dose reduction techniques: Automated exposure control, adjustment of the mA and/or kV according to patient size, and/or use of iterative reconstruction technique. FINDINGS: HEMORRHAGE: No intracranial hemorrhage. BRAIN: There are moderate chronic microangiopathic changes. There is no mass, mass effect or abnormal extra-axial fluid collections. 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 CALVARIUM: The skull base and calvarium are normal. PARANASAL SINUSES: Predominantly clear. MASTOID AIR CELLS: Predominantly clear. OTHER FINDINGS: None. IMPRESSION: No acute intracranial abnormality. Moderate chronic microangiopathic changes and moderate age-related global parenchymal volume loss. 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
[2017-06-12 09:09] LABS: TROPONIN I 0.06 ng/mL
[2017-06-12 09:13] LABS: VENOUS BLOOD GAS BASE EXCESS 2.8 mmol/L (0.0-2.0); VENOUS BLOOD GAS PO2 48 mm/Hg (30-55); VENOUS BLOOD PH 7.36 (7.32-7.43)
[2017-06-12 09:26] LABS: INR 1.08 (0.93-1.08); PARTIAL THROMBOPLASTIN TIME 27.1 Seconds (25.1-36.5); PROTHROMBIN TIME 12.3 SECONDS (9.4-12.5)
--- NOTE | 2017-06-12 09:41 | RAD ---
HISTORY: COMPARISON: No prior. TECHNIQUE: Chest PA and lateral FINDINGS: LINES AND TUBES: None. LUNG AND PLEURA: The lungs are well inflated. There is mild pulmonary venous congestion. No focal consolidation. HEART AND MEDIASTINUM: There is persistent mild cardiomegaly. There is unfolding of the aorta. Atherosclerotic aortic arch calcifications are present. The hilar and mediastinal contours are within normal limits. SKELETAL STRUCTURES: The bony structures are within normal limits for the patient's age. VISUALIZED UPPER ABDOMEN: Normal. OTHER FINDINGS: None. IMPRESSION: No active pulmonary disease.
[2017-06-12] MEDS: Sodium Chloride 0.9% 1,000 ML IV SCH ×2 (09:43→20:46)
[2017-06-12 10:41] LABS: URINE BILIRUBIN NEGATIVE (NEGATIVE); URINE BLOOD SMALL (NEGATIVE); URINE GLUCOSE (UA) NEGATIVE (NEGATIVE); URINE LEUKOCYTE ESTERASE MODERATE Leu/uL (NEGATIVE); URINE NITRATE NEGATIVE (NEGATIVE); URINE PROTEIN TRACE mg/dL (<30 mg/dL); URINE UROBILINOGEN 0.2 E.U./dL (<1 E.U./dL)
[2017-06-12 10:45] LABS: URINE APPEARANCE CLOUDY (CLEAR); URINE COLOR YELLOW (YELLOW)
[2017-06-12] MEDS: cefTRIAXone 1 gm 1 GM/100 ML BAG IVPB SCH (10:59)
[2017-06-12 11:17] LABS: URINE BACTERIA MOD (NEG)
[2017-06-12 16:52] LABS: BASO # 0.03 K/mm3 (0.0-2.0); BASO % 0.3 % (0.0-3.0); EOS # 0.2 (0.0-0.7); EOS % 1.7 % (1.5-5.0); GRAN # 8.36 (1.4-6.5); HEMOGLOBIN 11.3 g/dL (12.0-16.0); LYMPH # 2.5 (1.2-3.4); LYMPH % 21.5 % (22.0-35.0); MEAN CELL VOLUME 97.2 fl (80.0-105.0); MEAN CORPUSCULAR HEMOGLOBIN 31.1 pg (25.0-35.0); MEAN PLATELET VOLUME 10.6 fl (7.0-11.0); MONO # 0.7 (0.1-0.6); MONO % 5.5 % (1.0-6.0); RBC 3.63 10^6/uL (3.5-6.1); RED CELL DISTRIBUTION WIDTH 13.6 % (11.5-14.5); WHITE BLOOD COUNT 11.8 10^3/ul (4.5-11.0)
[2017-06-12] MEDS: Insulin Reg-LOW-Coverage SC SCH ×2 (17:28→21:06)
--- NOTE | 2017-06-12 19:26 | CARD ---
APPROVED REPORT EKG Measurement Heart [id number] <Conclusion> Sinus rhythm with marked sinus arrhythmia with 1st degree AV block T wave abnormality, consider anterior ischemia Prolonged QT Abnormal ECG
--- NOTE | 2017-06-12 19:59 | CP.PCM.PN ---
Subjective - Date & Time of Evaluation Date of Evaluation: 06/12/17 Time of Evaluation: 19:59 - Subjective Subjective: Patient was seen at bedside. She is complaining of right leg pain. Requesting tylenol . States that she had stroke 10 years ago.Since stroke long time ago, she has this pain on and off. It is mild pain.Takes tylenol at home for same pain. Has no other complaints. Medical record was reviewed. This 87 year old white woman was admitted Has PMH of dementia, lower extremity neuropathy, urosepsis, HLD, HTN, DM II. Objective - Vital Signs/Intake and Output Vital Signs (last 24 hours): Temp Pulse Resp BP Pulse Ox 98 F 63 18 132/70 96 06/12/17 16:00 06/12/17 16:00 06/12/17 16:00 06/12/17 16:00 06/12/17 16:00 - Medications Medications: Current Medications Alprazolam (Xanax) 0.25 mg PO DAILY [facility] PRN Reason: Protocol Stop: 06/20/17 10:01 Aspirin (Ecotrin) 81 mg PO 0800 [facility] Atorvastatin Calcium (Lipitor) 10 mg PO HS [facility] Clopidogrel Bisulfate (Plavix) 75 mg PO DAILY [facility] Docusate Sodium (Colace) 100 mg PO DAILY [facility] Escitalopram Oxalate (Lexapro) 10 mg PO DAILY [facility] Fentanyl (Duragesic) 1 patch TD Q72H [facility] Folic Acid (Folic Acid) 1 mg PO DAILY [facility] Sodium Chloride (Sodium Chloride 0.9%) 1,000 mls @ 100 mls/hr IV .Q10H [facility] Last Admin: 06/12/17 09:43 Dose: 100 mls/hr Ceftriaxone Sodium (Rocephin 1 Gram Ivpb) 1 gm in 100 mls @ 100 mls/hr IVPB DAILY [facility] PRN Reason: Protocol Last Admin: 06/12/17 10:59 Dose: 100 mls/hr Insulin Human Regular (Humulin R Low) 0 units SC ACHS [facility] PRN Reason: Protocol Last Admin: 06/12/17 17:28 Dose: 1 units Isosorbide Mononitrate (Imdur) 60 mg PO DAILY [facility] Lactulose (Enulose) 20 gm PO DAILY PRN PRN Reason: Constipation Losartan Potassium (Cozaar) 100 mg PO DAILY [facility] Magnesium Oxide (Mag-Ox) 400 mg PO DAILY [facility] - Labs Labs: 06/12/17 16:15 PT 12.3 SECONDS (9.4-12.5) 06/12/17 08:08 INR 1.08 (0.93-1.08) 06/12/17 08:08 APTT 27.1 Seconds (25.1-36.5) 06/12/17 08:08 Most Recent Lab Values WBC 11.8 10^3/ul (4.5-11.0) H D 06/12/17 16:15 RBC 3.63 10^6/uL (3.5-6.1) 06/12/17 16:15 Hgb 11.3 g/dL (12.0-16.0) L 06/12/17 16:15 Hct 35.3 % (36.0-48.0) L 06/12/17 16:15 MCV 97.2 fl (80.0-105.0) 06/12/17 16:15 MCH 31.1 pg (25.0-35.0) 06/12/17 16:15 MCHC 32.0 g/dl (31.0-37.0) 06/12/17 16:15 RDW 13.6 % (11.5-14.5) 06/12/17 16:15 Plt Count 182 10^3/uL (120.0-450.0) 06/12/17 16:15 MPV 10.6 fl (7.0-11.0) 06/12/17 16:15 Gran % 71.0 % (50.0-68.0) H 06/12/17 16:15 Lymph % (Auto) 21.5 % (22.0-35.0) L 06/12/17 16:15 Reeves % (Auto) 5.5 % (1.0-6.0) 06/12/17 16:15 Eos % (Auto) 1.7 % (1.5-5.0) 06/12/17 16:15 Baso % (Auto) 0.3 % (0.0-3.0) 06/12/17 16:15 Gran # 8.36 (1.4-6.5) H 06/12/17 16:15 Lymph # 2.5 (1.2-3.4) 06/12/17 16:15 Reeves # 0.7 (0.1-0.6) H 06/12/17 16:15 Eos # 0.2 (0.0-0.7) 06/12/17 16:15 Baso # 0.03 K/mm3 (0.0-2.0) 06/12/17 16:15 PT 12.3 SECONDS (9.4-12.5) 06/12/17 08:08 INR 1.08 (0.93-1.08) 06/12/17 08:08 APTT 27.1 Seconds (25.1-36.5) 06/12/17 08:08 pO2 48 mm/Hg (30-55) 06/12/17 09:05 VBG pH 7.36 (7.32-7.43) 06/12/17 09:05 VBG pCO2 52.0 (40-60) 06/12/17 09:05 VBG HCO3 29.4 mmol/l (21-28) H 06/12/17 09:05 VBG Total CO2 31.0 mmol.L (22-28) H 06/12/17 09:05 VBG O2 Sat (Calc) 87.9 % (40-65) H 06/12/17 09:05 VBG Base Excess 2.8 mmol/L (0.0-2.0) H 06/12/17 09:05 VBG Potassium 4.4 mmol/L (3.6-5.2) 06/12/17 09:05 Sodium 135.0 mmol/L (132-148) 06/12/17 09:05 Chloride 102.0 mmol/L (98-107) 06/12/17 09:05 Glucose 208 mg/dl (65-105) H 06/12/17 09:05 Lactate 1.4 mmol/L (0.7-2.1) 06/12/17 09:05 FiO2 21.0 % 06/12/17 09:05 Sodium 136 mmol/L (132-148) 06/12/17 08:08 Potassium 4.2 mmol/L (3.6-5.0) 06/12/17 08:08 Chloride 98 mmol/L (98-107) 06/12/17 08:08 Carbon Dioxide 28 mmol/L (21-33) 06/12/17 08:08 Anion Gap 14 (10-20) 06/12/17 08:08 BUN 36 mg/dL (7-21) H 06/12/17 08:08 Creatinine 1.5 mg/dl (0.7-1.2) H 06/12/17 08:08 Est GFR ( Amer) 40 06/12/17 08:08 Est GFR (Non-Af Amer) 33 06/12/17 08:08 POC Glucose (mg/dL) 187 mg/dL (65-110) H 06/12/17 16:22 Random Glucose 197 mg/dL (70-110) H 06/12/17 08:08 Calcium 9.6 mg/dL (8.4-10.5) 06/12/17 08:08 Magnesium 2.2 mg/dL (1.7-2.2) 06/12/17 08:08 Total Bilirubin 0.6 mg/dL (0.2-1.3) 06/12/17 08:08 AST 33 U/L (14-36) 06/12/17 08:08 ALT 26 U/L (7-56) 06/12/17 08:08 Alkaline Phosphatase 142 U/L (38-126) H 06/12/17 08:08 Lactate Dehydrogenase 457 U/L (333-699) 06/12/17 08:08 Total Creatine Kinase 56 U/L (35-230) 06/12/17 08:08 Troponin I 0.06 ng/mL 06/12/17 08:08 NT-Pro-B Natriuret Pep 1470 pg/mL (0-450) H 06/12/17 08:08 Total Protein 7.6 g/dL (5.8-8.3) 06/12/17 08:08 Albumin 3.8 g/dL (3.0-4.8) 06/12/17 08:08 Globulin 3.8 gm/dL 06/12/17 08:08 Albumin/Globulin Ratio 1.0 (1.1-1.8) L 06/12/17 08:08 Venous Blood Potassium 4.4 mmol/L (3.6-5.2) 06/12/17 09:05 Urine Color Yellow (YELLOW) 06/12/17 10:22 Urine Appearance Cloudy (CLEAR) 06/12/17 10:22 Urine pH 6.0 (4.7-8.0) 06/12/17 10:22 Ur Specific Ethel 1.020 (1.005-1.035) 06/12/17 10:22 Urine Protein Trace mg/dL (<30 mg/dL) H 06/12/17 10:22 Urine Glucose (UA) Negative mg/dL (NEGATIVE) 06/12/17 10:22 Urine Ketones Negative mg/dL (NEGATIVE) 06/12/17 10:22 Urine Blood Small (NEGATIVE) H 06/12/17 10:22 Urine Nitrate Negative (NEGATIVE) 06/12/17 10:22 Urine Bilirubin Negative (NEGATIVE) 06/12/17 10:22 Urine Urobilinogen 0.2 E.U./dL (<1 E.U./dL) 06/12/17 10:22 Ur Leukocyte Esterase Moderate Charles/uL (NEGATIVE) H 06/12/17 10:22 Urine RBC 1 - 3 /hpf (0-2) 06/12/17 10:22 Urine WBC 5 - 10 /hpf (0-6) 06/12/17 10:22 Ur Epithelial Cells 3 - 4 /hpf (0-5) 06/12/17 10:22 Urine Bacteria Mod (NEG) 06/12/17 10:22 Influenza Typ A,B (EIA) Negative for flu a/b (NEGATIVE) 06/12/17 08:08 - Constitutional Appears: Well, No Acute Distress - Head Exam Head Exam: ATRAUMATIC, NORMAL INSPECTION, NORMOCEPHALIC - Eye Exam Eye Exam: Normal appearance - ENT Exam ENT Exam: Normal External Ear Exam - Neck Exam Neck Exam: Normal Inspection - Respiratory Exam Respiratory Exam: NORMAL BREATHING PATTERN - Cardiovascular Exam Cardiovascular Exam: absent: JVD - GI/Abdominal Exam GI & Abdominal Exam: absent: Distended - Rectal Exam Rectal Exam: Deferred - Exam Additional comments: Deferred. - Extremities Exam Extremities Exam: Tenderness (Minimal right distal thigh on posterior aspect.) - Back Exam Back Exam: NORMAL INSPECTION - Neurological Exam Neurological Exam: Alert, Awake, Oriented x3 - Psychiatric Exam Psychiatric exam: Normal Affect, Normal Mood - Skin Skin Exam: Normal Color Assessment and Plan - Assessment and Plan (Free Text) Assessment: Right leg pain. Dementia. HLD. HTN. Non Insulin Dependent DM. Plan: Tylenol 650 mg PO x 1. Continue present management as per PMD.
--- NOTE | 2017-06-12 22:53 | HP ---
HISTORY OF PRESENT ILLNESS: An 87-year-old white female with history of CAD status post stent on Plavix, history of chronic back pain and leg pain on fentanyl patch. The patient has a history of non-insulin dependent diabetes mellitus, hypertension, history of recurrent urinary tract infection in the past. The patient was unable to walk last night, was unable to urinate yesterday. The patient this morning woke up with a wet bed. Still unable to use a legs. Complaining a pain in the right thigh and right lower extremity, different from before. The patient was unable to stand and unable to bear weight, came to the Emergency Room, was found to have slightly irregular heart with sinus irregularity, decreased breath sounds bilaterally, but normal chest x-ray, normal CT of the head, warm and tender right thigh without erythema or without swelling. The patient has elevated white count. Unable to walk. Plan is to admit workup for possible sepsis, workup for possible PE and DVT. PHYSICAL EXAMINATION: GENERAL: She is well-developed, elderly white female, awake and alert. VITAL SIGNS: Stable. Blood pressure was slightly elevated 160/80. The patient is desaturating with oxygen at 89%. There is tenderness and swelling of the right leg. CHEST: Shows decreased breath sounds bilaterally. HEART: Sinus rhythm with irregularity. The patient is alert, oriented. There is decreased strength in the right lower extremity, Babinski down going bilaterally. Emmanuel Dudley MD
[2017-06-13] MEDS: Sodium Chloride 0.9% 1,000 ML IV SCH (06:12)
[2017-06-13] MEDS: Insulin Reg-LOW-Coverage SC SCH ×4 (08:05→21:29)
[2017-06-13] MEDS ORDERED: Sodium Chloride 0.9% 1,000 ML IV SCH (08:45)
[2017-06-13 09:16] LABS: BASO # 0.03 K/mm3 (0.0-2.0); BASO % 0.4 % (0.0-3.0); EOS # 0.3 (0.0-0.7); EOS % 3.1 % (1.5-5.0); GRAN # 6.21 (1.4-6.5); GRAN % 73.5 % (50.0-68.0); LYMPH # 1.5 (1.2-3.4); LYMPH % 17.2 % (22.0-35.0); MEAN CELL VOLUME 98.4 fl (80.0-105.0); MEAN CORPUSCULAR HEMOGLOBIN 31.5 pg (25.0-35.0); MEAN PLATELET VOLUME 10.5 fl (7.0-11.0); MONO # 0.5 (0.1-0.6); MONO % 5.8 % (1.0-6.0); RBC 3.81 10^6/uL (3.5-6.1); RED CELL DISTRIBUTION WIDTH 13.6 % (11.5-14.5); WHITE BLOOD COUNT 8.4 10^3/ul (4.5-11.0)
[2017-06-13 09:25] LABS: ALB/GLOB RATIO 0.9 (1.1-1.8); ALBUMIN 3.5 g/dL (3.0-4.8); ALT/SGPT 29 U/L (7-56); AST/SGOT 28 U/L (14-36); BLOOD UREA NITROGEN 26 mg/dL (7-21); CALCIUM 9.5 mg/dL (8.4-10.5); GFR AFRICAN-AMERICAN > 60; GFR NON-AFRICAN AMERICAN 52; MAGNESIUM 2.3 mg/dL (1.7-2.2)
[2017-06-13 09:39] LABS: T4 8.1 ug/dL (5.5-11.0)
[2017-06-13] MEDS: Magnesium Oxide 400 mg Tab UD PO SCH (10:42)
[2017-06-13] MEDS: cefTRIAXone 1 gm 1 GM/100 ML BAG IVPB SCH (10:43)
--- NOTE | 2017-06-13 14:48 | US ---
PROCEDURE: Lower extremity BARBRA exam HISTORY: Peripheral vascular disease with pain and claudication. Diabetes PHYSICIAN(S): Joel Devi MD. FINDINGS: The resting BARBRA's are normal: right, 1.10and left, 1.22. The brachial systolic pressures are symmetric. The low thigh pressures and waveforms are relatively normal. The calf PVR waveforms augment normally. No significant gradients are noted across the thighs. The ankle and metatarsal waveforms are relatively normal and symmetric. No significant pressure gradients are noted across the lower legs. IMPRESSION: 1. Relatively normal BARBRA and PVR examination at rest.
--- NOTE | 2017-06-13 14:55 | NM ---
COMPARISON: June 12, 2017. Single-view chest TECHNIQUE: 30.8 mCi technetium 99-m DTPA aerosol. 3.4 mCI technetium 99-m MAA administered intravenously. FINDINGS: VENTILATION COMPONENT: Mildly heterogeneous ventilation. Retention of radionuclide in the tracheobronchial tree and ingestion of radionuclide in the stomach, incidental findings PERFUSION COMPONENT: Heterogeneous distribution of radionuclide. No geographic, segmental, lobar abnormalities apparent on the present examination. IMPRESSION: Low probability ventilation perfusion scan for pulmonary embolism.
--- NOTE | 2017-06-13 15:06 | PN ---
DATE: SUBJECTIVE: An 87-year-old white female admitted to the hospital with changed mental status, unable to walk, pain in the right thigh, urinary tract infection, changed mental status confusion, urinary incontinence. Patient is somewhat improved today. PHYSICAL EXAMINATION: VITAL SIGNS: Are stable. Afebrile today, 145/65 blood pressure. LABORATORY DATA: White count is down from 15,000 to 8400. We are awaiting an ultrasound of the leg and a VQ scan. is unremarkable, we will still need to start physical therapy and occupational therapy to assess the ability to ambulate. Emmanuel Dudley MD
[2017-06-14] MEDS: Insulin Reg-LOW-Coverage SC SCH ×4 (08:03→22:00)
--- NOTE | 2017-06-14 10:11 | PN ---
DATE: SUBJECTIVE: An 87-year-old white female was admitted to the hospital with change in mental status and fever. PHYSICAL EXAMINATION: VITAL SIGNS: Temperature 99. Vital signs are stable. She has less pain in her leg. Her V/Q scan was negative. We are awaiting for a venous Doppler in the right leg, there is less pain. She has increased strength. She needs to ambulate before being discharged home. PLAN: Continue p.o. antibiotics at home and to ambulate and increase her therapy. Emmanuel Dudley MD
[2017-06-14] MEDS: Magnesium Oxide 400 mg Tab UD PO SCH (10:12)
[2017-06-14] MEDS: cefTRIAXone 1 gm 1 GM/100 ML BAG IVPB SCH (10:13)
[2017-06-14] MEDS: Amoxicillin-Clav 500-125 mg Tab PO SCH ×2 (11:50→22:26)
--- NOTE | 2017-06-14 16:01 | US ---
HISTORY: Leg pain and swelling. Evaluate for DVT PHYSICIAN(S): Joel Devi MD. TECHNIQUE: Duplex sonography and color-flow Doppler with graded compression were used to evaluate the deep venous systems of both lower extremities. The exam is limited by body habitus and edema. FINDINGS: The visualized deep venous systems of both lower extremities are sonographically normal and compressible. Normal wave forms and augmentation are seen. There is no sonographic evidence for deep venous thrombosis in the visualized segments of both lower extremities. IMPRESSION: No sonographic evidence for deep venous thrombosis in the visualized segments of both lower extremities. Limited study.
[2017-06-15] MEDS: Magnesium Oxide 400 mg Tab UD PO SCH (11:03)
[2017-06-15] MEDS: Insulin Reg-LOW-Coverage SC SCH ×4 (11:08→21:46)
[2017-06-15] MEDS: Amoxicillin-Clav 500-125 mg Tab PO SCH ×3 (11:32→23:24)
--- NOTE | 2017-06-15 18:49 | CARD ---
APPROVED REPORT EXAM: Two-dimensional and M-mode echocardiogram with Doppler and color Doppler. INDICATION LVFX 2D DIMENSIONS Left Atrium (2D)4.1 (1.6-4.0cm)IVSd1.4 (0.7-1.1cm) LVDd4.4 (3.9-5.9cm)LVOT Diameter1.9 (1.8-2.4cm) PWd1.4 (0.7-1.1cm)LVDs2.9 (2.5-4.0cm) FS (%) 35.4 %LVEF (%)65.0 (>50%) M-Mode DIMENSIONS Aortic Root3.60 (2.2-3.7cm)Aortic Cusp Exc.1.00 (1.5-2.0cm) Aortic Valve AoV Peak Vanqjpgg348.0cm/sAoV VTI44.7cmAO Peak GR.20mmHg LVOT Peak Ptmmznhk801.0cm/sLVOT VTI24.80cmAO Mean GR.7mmHg ALICIA (VMAX)1.34vf3TOZ (VTI)1.14eu2CS P 1/2 [id number] Mitral Valve MV E Dcesocuk207.0cm/sMV A Tfsqyrna088.0cm/sE/A ratio0.9 TDI Lateral E' Peak V5.95cm/sMedial E' Peak V6.14cm/sE/Lateral E'18.8 E/Medial E'18.2 Pulmonary Valve PV Peak Zhqzjyyn354.0cm/sPV Peak Grad.4mmHg Tricuspid Valve TR Peak Zgqmkopf316la/sRAP [id number] Peak Gr.30mmHg [id number] LEFT VENTRICLE The left ventricle is normal size. There is mild concentric left ventricular hypertrophy. The left ventricular function is normal.EF-6-65% There is normal LV segmental wall motion. Transmitral Doppler flow pattern is Grade III-reversible restrictive diastolic dysfunction. No left ventricle thrombus noted on this study. There is no ventricular septal defect visualized. There is no left ventricular aneurysm. There is no mass noted in the left ventricle. RIGHT VENTRICLE The right ventricle is normal size. There is normal right ventricular wall thickness. The right ventricular systolic function is normal. ATRIA The left atrium is mildly dilated. The right atrium size is normal. The interatrial septum is intact with no evidence for an atrial septal defect. AORTIC VALVE The aortic valve is calcified and displays decreased opening. There is moderate aortic regurgitation. There is mild to moderate valvular aortic stenosis. There is no aortic valvular vegetation. MITRAL VALVE The mitral valve is thickened but opens well. Mitral regurgitation is mild. There is no mitral valve stenosis. There is no evidence of mitral valve prolapse. TRICUSPID VALVE The tricuspid valve leaflets are thickened , but open well. There is trace to mild tricuspid regurgitation.RVSP-40 mmof Hg. There is no tricuspid valve stenosis. There is no tricuspid valve prolapse or vegetation. PULMONIC VALVE The pulmonary valve is normal in structure. There is trace pulmonic valvular regurgitation. GREAT VESSELS The aortic root is normal in size. The ascending aorta is normal in size. The pulmonary artery is normal. The IVC is normal in size and collapses >50% with inspiration. PERICARDIAL EFFUSION There is no pleural effusion. There is no pericardial effusion. <Conclusion> The left ventricle is normal size. There is mild concentric left ventricular hypertrophy. The left ventricular function is normal.EF-6-65% There is moderate aortic regurgitation. There is mild to moderate valvular aortic stenosis. Mitral regurgitation is mild. There is trace to mild tricuspid regurgitation.RVSP-40 mmof Hg. The IVC is normal in size and collapses >50% with inspiration. There is no pericardial effusion.
[2017-06-16 01:34] VITALS: RESP 18
[2017-06-16 07:28] VITALS: BP 153/66; PULSE 62; TEMP 97.3; O2SAT 97
[2017-06-16] MEDS: Insulin Reg-LOW-Coverage SC SCH (07:41)
[2017-06-16] MEDS: Magnesium Oxide 400 mg Tab UD PO SCH (09:33)
[2017-06-16] MEDS: Amoxicillin-Clav 500-125 mg Tab PO SCH (10:33)
== END 2017-06-16 10:39 | disposition home health service (06) | DRG 690 ==
LOC: ED 07:24 → ERH 11:01 → 5RNO 12:18
PROVIDERS: ADMIT Internal Medicine; ATTEND Internal Medicine
DX: N39.0 Urinary tract infection, site not specified (principal); E11.41 Type 2 diabetes mellitus with diabetic mononeuropathy; F03.90 Unspecified dementia, unspecified severity, without behavioral disturbance, psychotic disturbance, mood disturbance, and anxiety; I25.10 Atherosclerotic heart disease of native coronary artery without angina pectoris; E78.5 Hyperlipidemia, unspecified; I10 Essential (primary) hypertension; R26.2 Difficulty in walking, not elsewhere classified; M54.9 Dorsalgia, unspecified; M79.606 Pain in leg, unspecified; G89.29 Other chronic pain; Z79.84 Long term (current) use of oral hypoglycemic drugs; Z87.440 Personal history of urinary (tract) infections; Z86.73 Personal history of transient ischemic attack (TIA), and cerebral infarction without residual deficits; Z95.5 Presence of coronary angioplasty implant and graft